=== PATIENT | male | born 1950 | race Caucasian/White ===

== ENCOUNTER 2019-03-19 09:45 | Emergency (ER) | payer OTHER ==
[~2019-03-19] VITALS: Ht 165.1 cm; Wt 70.3 kg
== END 2019-03-19 10:52 | disposition home or self-care (01) ==
LOC: ER 09:45
DX: S51.841A Puncture wound with foreign body of right forearm, initial encounter (principal); W45.8XXA Other foreign body or object entering through skin, initial encounter; Y93.89 Activity, other specified; Y92.89 Other specified places as the place of occurrence of the external cause; Y99.8 Other external cause status